=== PATIENT | male | born 1970 | race Caucasian/White ===

== ENCOUNTER → 2022-07-31 15:55 | Outpatient (BNVA) | payer OTHER, SELFPAY | PROVIDERS: PCP Family Medicine; Visit Provider Family Medicine | DX: E78.5 Hyperlipidemia, unspecified (principal); F32.A Depression, unspecified | CPT/HCPCS: 80053; 80061; 84403; 85025 ==

== ENCOUNTER → 2023-01-14 14:29 | Outpatient (BNVA) | payer OTHER, SELFPAY | PROVIDERS: PCP Family Medicine; Visit Provider Family Medicine | DX: R30.0 Dysuria (principal); K92.1 Melena | CPT/HCPCS: 81000 ==

== ENCOUNTER → 2023-11-04 13:39 | Outpatient (BNVA) | payer OTHER, SELFPAY | PROVIDERS: PCP Family Medicine; Visit Provider Family Medicine | DX: E78.5 Hyperlipidemia, unspecified; F32.A Depression, unspecified; E29.1 Testicular hypofunction | CPT/HCPCS: 80053; 80061; 84153; 84403; 85025 ==